=== PATIENT | male | born 1990 | race Two or more races ===

== ENCOUNTER 2024-05-18 11:35 | Emergency (ER) | payer MEDICAID ==
[~2024-05-18] VITALS: Ht 172.7 cm; Wt 113.4 kg
[2024-05-18] MEDS ORDERED: DEXAMETHASONE SOD PHOSPHATE 10 MG INJ ONE (12:37)
[2024-05-18] MEDS ORDERED: KETOROLAC TROMETHAMINE 15 MG INJ ONE (12:37)
[2024-05-18] MEDS ORDERED: AMOX-430 PO (12:41)
[2024-05-18] MEDS ORDERED: IBUP-1955 PO (12:41)
[2024-05-18] MEDS: DEXAMETHASONE SOD PHOSPHATE 4 MG INJ IM ONE (12:42)
[2024-05-18] MEDS: KETOROLAC TROMETHAMINE 15 MG INJ IM ONE (12:42)
[2024-05-18 14:08] VITALS: BP 154/99; O2SAT 98
== END 2024-05-18 14:09 | disposition home or self-care (01) ==
LOC: ER 11:35
DX: J02.9 Acute pharyngitis, unspecified (principal); H92.02 Otalgia, left ear
CPT/HCPCS: 99284; 86403; 96372; J1885; J1100; A4606; A4663